=== PATIENT | male | born 1995 | race Caucasian/White ===

== ENCOUNTER 2018-08-04 13:52 | Emergency (ER) | payer BC ==
[2018-08-04] MEDS ORDERED: Ondansetron INJ* 2 MG/ML VIAL IV ONE (14:44)
[2018-08-04] MEDS ORDERED: NS 0.9% 1000 ML** 1,000 ML IV ONE (14:44)
--- NOTE | 2018-08-04 14:53 | ED ---
Substance Abuse/Use - HPI Summary HPI Summary: Pt is a 22 y/o male brought in by ambulance on a 2208 who presents to the ED c/ o alcohol intoxication. As per EMS, he was drinking at [employer] and was so intoxicated he was falling out of his chair. Pt told EMS he wanted help for his alcoholism. He denies any drug use. Pt is a level 5 caveat due to his intoxicated state. - History Of Current Complaint Chief Complaint: EDSubstanceAbuse Stated Complaint: 2208 Time Seen by Provider: 08/04/18 14:15 Hx Obtained From: Patient, EMS Hx From Patient Unobtainable Due To: Other - Alcohol intoxication Ingestion History: Type/Name Of Drug - Alcohol Timing Of Abuse: Daily Character: Lethargic Aggravating Factor(s): Nothing Alleviating Factor(s): Nothing Associated Signs And Symptoms: Negative - Allergies/Home Medications Allergies/Adverse Reactions: Allergies Allergy/AdvReac Type Severity Reaction Status Date / Time No Known Allergies Allergy Verified 08/04/18 14:06 Home Medications: Home Medications NK [No Home Medications Reported] 08/04/18 [History Confirmed 08/04/18] PMH/Surg Hx/FS Hx/Imm Hx EENT History: Denies: Hx Deafness Psychiatric History: Reports: Hx Substance Abuse - ETOH Infectious Disease History: No Infectious Disease History: Denies: Traveled Outside the [place] in Last 30 Days - Family History Known Family History: Positive: Unknown - Level 5 Caveat - Intoxication - Social History Alcohol Use: Daily Hx Substance Use: Yes Substance Use Type: Reports: Marijuana Hx Tobacco Use: No Smoking Status (MU): Never Smoked Tobacco Review of Systems Positive: Other - alcohol intoxication. Negative: Fever All Other Systems Reviewed And Are Negative: No Physical Exam - Summary Physical Exam Summary: GENERAL: Patient is a well-developed and nourished M who is lying comfortable in the stretcher. Patient is not in any acute respiratory distress. Patient is very intoxicated. HEAD AND FACE: Normocephalic EYES: PERRLA, EOMI x 2, pupils dilated EARS: Hearing grossly intact. MOUTH: Oropharynx within normal limits. NECK: Supple, trachea is midline, no adenopathy, no JVD, no carotid bruit. CHEST: Symmetric, no tenderness at palpation LUNGS: Clear to auscultation bilaterally. No wheezing or crackles. CVS: Regular rate and rhythm, S1 and S2 present, no murmurs or gallops appreciated. ABDOMEN: Soft, non-tender. Bowel sounds are normal. No abdominal abnormal pulsations. EXTREMITIES: Full ROM in all major joints, no edema, no cyanosis or clubbing. NEURO: Alert and oriented x 3. No acute neurological deficits. Speech is normal and follows commands. SKIN: Dry and warm' Physical exam is limited by intoxication level - LEVEL 5 CAVEAT Triage Information Reviewed: Yes Vital Signs On Initial Exam: Initial Vitals Temp Pulse Resp BP Pulse Ox 98.6 F 101 18 125/88 96 08/04/18 14:01 08/04/18 14:01 08/04/18 14:01 08/04/18 14:01 08/04/18 14:01 Vital Signs Reviewed: Yes Diagnostics - Vital Signs Vital Signs Temp Pulse Resp BP Pulse Ox 08/04/18 14:01 98.6 F 101 18 125/88 96 - Laboratory Result Diagrams: 08/04/18 14:55 08/04/18 14:55 Lab Statement: Any lab studies that have been ordered have been reviewed, and results considered in the medical decision making process. Re-Evaluation - Re-Evaluation First Eval Re-Evaluation Time: 06:15 Change: Unchanged Comment: Pt is still sleeping. His O2 sat without oxygen is now 97%. Course/Dx - Course Course Of Treatment: Pt is a 22 y/o male brought in by ambulance on a 2209 who presents to the ED c/o alcohol intoxication. Pt is a level 5 caveat due to his intoxicated state. Workup was remarkable for a serum alcohol of 312. Patient will be signed out to Dr. Armenta pending sobriety with a final dx of alcohol intoxication. - Diagnoses Provider Diagnoses: Alcohol intoxication Discharge - Sign-Out/Discharge Documenting (check all that apply): Sign-Out Patient Signing out patient TO: Ruddy Armenta Patient Received Moderate/Deep Sedation with Procedure: No - Discharge Plan Condition: Stable Disposition: HOME Referrals: [facility] [place] [facility] [Outside] Additional Instructions: PLEASE FOLLOW UP WITH YOUR PCP IN 1-2 DAYS. RETURN TO THE ED WITH ANY NEW OR WORSENING SYMPTOMS. - Billing Disposition and Condition Condition: STABLE Disposition: Home - Attestation Statements Document Initiated by Scribe: Yes Documenting Scribe: Aicha Rivera Provider For Whom Scribe is Documenting (Include Credential): Gretel Clark MD Scribe Attestation: I, Aicha Rivera, scribed for Gretel Clark MD on 08/05/18 at 1819. Scribe Documentation Reviewed: Yes Provider Attestation: The documentation as recorded by the scribe, Aicha Rivera accurately reflects the service I personally performed and the decisions made by me, Gretel Clark MD Status of Scribe Document: Viewed
[2018-08-04 15:24] LABS: ABS Basophils 0 10^3/ul (0-0.2); ABS Eosinophils 0.3 10^3/ul (0-0.6); ABS Lymphocytes 1.4 10^3/ul (1.0-4.8); ABS Monocytes 0.4 10^3/ul (0-0.8); ABS Nucleated RBC 0 10^3/ul; Eosinophil % 6.2 %; Hematocrit 39 % (42-52); Hemoglobin 13.3 g/dl (14.0-18.0); Lymphocyte % 26.9 %; Mean Corpuscular HGB Conc 34 g/dl (31-36); Mean Corpuscular Hemoglobin 30 pg (27-31); Mean Corpuscular Volume 89 fL (80-94); Nucleated Red Blood Cells % 0; Platelet Count 211 10^3/ul (150-450); Red Blood Count 4.43 10^6/ul (4.00-5.40); Red Cell Distribution Width 13 % (10.5-15); White Blood Count 5.1 10^3/ul (3.5-10.8)
[2018-08-04 15:38] LABS: Albumin/Globulin Ratio 1.9 (1-3); BUN/Creatinine Ratio 5.6 (8-20); Calcium 8.6 mg/dL (8.6-10.3); EGFR African American 103.6 (>60); EGFR Non-African American 85.6 (>60); Globulin 2.7 g/dL (2-4); Potassium 3.9 mmol/L (3.5-5.0); Total Bilirubin 0.3 mg/dL (0.2-1.0); Total Protein 7.7 g/dL (6.4-8.9)
[2018-08-04 15:45] LABS: Barbiturates Urine Screen None Detected (None Detect); Benzodiazepine Urine Screen None Detected (None Detect); Urine Cannabinoids Screen None Detected (None Detect)
--- NOTE | 2018-08-04 20:06 | ED ---
Progress - Progress Note Progress Note: 2003 - Receiving s/o from Dr. Clark. Pt is awake and alert, is feeling better and would like to go home. Pt will be discharged with a dx of EtOH intoxication. Re-Evaluation - Re-Evaluation First Eval Re-Evaluation Time: 06:15 Change: Unchanged Comment: Pt is still sleeping. His O2 sat without oxygen is now 97%. Course/Dx - Course Course Of Treatment: Pt is a sign-out from Dr. Clark. He is currently stable and ready to go home. - Diagnoses Provider Diagnoses: Alcohol intoxication Discharge - Sign-Out/Discharge Documenting (check all that apply): Patient Departure, Receiving Sign-Out Receiving patient FROM: Gretel Clark Patient Received Moderate/Deep Sedation with Procedure: No - Discharge Plan Condition: Stable Disposition: HOME Referrals: [facility] [place] [place]] Additional Instructions: PLEASE FOLLOW UP WITH YOUR PCP IN 1-2 DAYS. RETURN TO THE ED WITH ANY NEW OR WORSENING SYMPTOMS. - Attestation Statements Document Initiated by Scribe: Yes Documenting Scribe: Judi Ordonez Provider For Whom Kirby is Documenting (Include Credential): Ruddy Armenta MD. Scribe Attestation: Judi Valero, scribed for Ruddy Armenta MD. on 08/04/18 at 2007. Status of Scribe Document: Ready
[2018-08-04 20:13] VITALS: BP 127/91
== END 2018-08-04 20:12 | disposition home or self-care (01) ==
LOC: ED 13:52
DX: F10.129 Alcohol abuse with intoxication, unspecified (principal)
CPT/HCPCS: 36415; 80053; 80307; 80320; 85025; 96374; 99284; G0480

== ENCOUNTER → 2018-09-05 17:02 | Emergency (ER) | payer BC ==
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
[2018-09-05 19:09] VITALS: BP 118/76
== END | disposition home or self-care (01) ==
LOC: ED 17:02
DX: R41.3 Other amnesia (principal); R55 Syncope and collapse; V89.2XXA Person injured in unspecified motor-vehicle accident, traffic, initial encounter; Y92.9 Unspecified place or not applicable; R51 Headache
CPT/HCPCS: 70450; 99282